=== PATIENT | female | born 1995 | race Caucasian/White ===

== ENCOUNTER 2020-11-18 08:40 | Emergency (ER) | payer MEDICAID, OTHER ==
[~2020-11-18] VITALS: Ht 152.4 cm; Wt 54.4 kg
[2020-11-18 08:56] VITALS: BP_SYST 130
[2020-11-18] MEDS ORDERED: NAPR-688 PO (09:45)
[2020-11-18 10:06] VITALS: BP_SYST 130
== END 2020-11-18 10:05 | disposition home or self-care (01) ==
LOC: SED 08:40
DX: S53.491A Other sprain of right elbow, initial encounter (principal); X58.XXXA Exposure to other specified factors, initial encounter; Y93.89 Activity, other specified; Y92.89 Other specified places as the place of occurrence of the external cause; Y99.8 Other external cause status
CPT/HCPCS: 99283

== ENCOUNTER 2022-08-19 07:12 | Emergency (ER) | payer MEDICAID ==
[~2022-08-19] VITALS: Ht 152.4 cm; Wt 61.2 kg
[~2022-08-19 07:12] MED LIST: NAPR-688 PO
[2022-08-19 07:37] VITALS: BP_SYST 143
--- NOTE | 2022-08-19 08:00 | NUR ---
Patient to ER WR to gown for evaluation. Side rails up.
--- NOTE | 2022-08-19 08:02 | NUR ---
ER at bedside examining patient.
--- NOTE | 2022-08-19 08:05 | NUR ---
Swabbed for COVID & INFLUENZA. Sent to lab.
--- NOTE | 2022-08-19 08:06 | NUR ---
Pt presents to ED c/o body aches,fever and COVID+.
--- NOTE | 2022-08-19 08:10 | NUR ---
Critical Lab: Influenza A called and read back to Paige of lab.
[2022-08-19] MEDS ORDERED: NIRM1TAB5 PO (08:28)
[2022-08-19] MEDS ORDERED: OSEL75CA PO (08:28)
[2022-08-19] MEDS ORDERED: IBUP-1969 PO (08:28)
[2022-08-19] MEDS ORDERED: ALBMDI INH (08:29)
--- NOTE | 2022-08-19 09:00 | NUR ---
Patient given written and verbal discharge instructions and verbalizes understanding. ER MD discussed with patient the results and treatment provided. Patient in stable condition. ID arm band removed. Rx of PAXLOVID,MOTRIN given. Patient educated on pain management and to follow up with PMD. Pain Scale 0 Opportunity for questions provided and answered. Medication side effect fact sheet provided.
== END 2022-08-19 09:00 | disposition home or self-care (01) ==
LOC: SED 07:12
DX: U07.1 COVID-19 (principal); J10.1 Influenza due to other identified influenza virus with other respiratory manifestations; R05.9 Cough, unspecified; R09.81 Nasal congestion; R51.9 Headache, unspecified; Z79.899 Other long term (current) drug therapy
CPT/HCPCS: 36415; 71045; 81025; 99284

== ENCOUNTER 2022-10-23 03:42 | Emergency (ER) | payer MEDICAID ==
[~2022-10-23] VITALS: Ht 152.4 cm; Wt 56.7 kg
[~2022-10-23 03:42] MED LIST changes: +ALBMDI INH; +IBUP-1969 PO; +NIRM1TAB5 PO; +OSEL75CA PO
[2022-10-23 03:48] VITALS: BP_SYST 145
--- NOTE | 2022-10-23 03:48 | NUR ---
Pt report given to LEODAN Rutherford.
--- NOTE | 2022-10-23 03:48 | NUR ---
Pt placed to ER bed 04, to gown, to patient monitor. Pt tachypneic with audible wheezing, MD and RT notified.
--- NOTE | 2022-10-23 03:50 | NUR ---
Dr. Mills at bedside.
--- NOTE | 2022-10-23 03:52 | NUR ---
RT at bedside, breathing tx in progress.
[2022-10-23] MEDS ORDERED: IPRATROPIUM/ALBUTEROL SULFATE 3 ML AMPUL.NEB (DUONEB) ONE (04:07)
[2022-10-23] MEDS ORDERED: ALBUTEROL SULFATE 0.083% 2.5 MG/3 ML VIAL.NEB INH ONE (04:15)
[2022-10-23] MEDS ORDERED: predniSONE 20 MG TABLET PO ONE (04:15)
[2022-10-23] MEDS ORDERED: PRED20TA PO (04:48)
[2022-10-23] MEDS ORDERED: ALBMDI INH (04:48)
[2022-10-23 05:04] VITALS: BP_SYST 122
--- NOTE | 2022-10-23 05:07 | NUR ---
Patient given written and verbal discharge instructions and verbalizes understanding. ER MD discussed with patient the results and treatment provided. Patient in stable condition. ID arm band removed. IV catheter removed intact and dressing applied, no active bleeding. Rx of albuterol given. Patient educated to follow up with PMD. Pain Scale 0. Opportunity for questions provided and answered.
== END 2022-10-23 05:04 | disposition home or self-care (01) ==
LOC: SED 03:42
DX: J45.901 Unspecified asthma with (acute) exacerbation (principal); R06.02 Shortness of breath; R07.81 Pleurodynia; Z79.899 Other long term (current) drug therapy
CPT/HCPCS: 99283; 94640; J7512

== ENCOUNTER 2023-01-22 18:58 | Emergency (ER) | payer BC, MEDICAID ==
[~2023-01-22] VITALS: Ht 152.4 cm; Wt 59.0 kg
[~2023-01-22 18:58] MED LIST changes: +PRED20TA PO
[2023-01-22 19:07] VITALS: BP_SYST 104
--- NOTE | 2023-01-22 19:45 | NUR ---
Patient called x 3, no answer
--- NOTE | 2023-01-22 19:46 | NUR ---
Patient left without being seen. No further treatment provided. ER MD aware
== END 2023-01-22 19:46 | disposition left against medical advice (07) ==
LOC: SED 18:58
DX: K13.79 Other lesions of oral mucosa (principal); Z53.21 Procedure and treatment not carried out due to patient leaving prior to being seen by health care provider
CPT/HCPCS: 99281

== ENCOUNTER 2024-06-13 05:41 | Emergency (ER) | payer BC, MEDICAID ==
[~2024-06-13] VITALS: Ht 152.4 cm; Wt 54.9 kg
[2024-06-13 05:51] VITALS: BP_SYST 125; PULSE 96; RESP 19; TEMP 97.9; O2SAT 99
[2024-06-13] MEDS: IPRATROPIUM/ALBUTEROL SULFATE 3 ML AMPUL.NEB (DUONEB) INH ONE (06:09)
[2024-06-13] MEDS ORDERED: PRED20TA PO (07:12)
[2024-06-13 07:13] VITALS: BP_SYST 125; PULSE 96; RESP 19; TEMP 97.9; O2SAT 99
== END 2024-06-13 07:20 | disposition home or self-care (01) ==
LOC: SED 05:41
DX: J45.901 Unspecified asthma with (acute) exacerbation (principal); Z79.899 Other long term (current) drug therapy; Z79.2 Long term (current) use of antibiotics
CPT/HCPCS: 71045; 81025; 94640; 99283